=== PATIENT | male | born 2000 | race Caucasian/White ===

== ENCOUNTER 2021-02-05 13:14 | Emergency (ER) | payer OTHER ==
[2021-02-05 13:19] VITALS: BP 141/69; PULSE 80; RESP 18; TEMP 97.7
--- NOTE | 2021-02-05 14:22 | ED ---
Wound/Laceration HPI - General Source: patient Mode of arrival: ambulatory Limitations: no limitations <Dakotah Luke - Last Filed: 02/05/21 14:19> <Keerthi Wolff - Last Filed: 02/06/21 10:15> - General Chief Complaint: Wound/Laceration Stated Complaint: eyebrow laceration - History of Present Illness Initial Comments: 21-year-old male presents emergency Department with chief complaint laceration. This occurred about one hour prior to arrival. Patient reports using a breaker bar to work on his car when the bar snapped and hit him in the left supraorbital region. Reports laceration which is slightly tender to touch. Denies any loss of consciousness. No blood thinners. Tetanus is up-to-date. Denies numbness or tingling. Denies any headaches. Denies blurry vision. (Dakotah Luke) - Related Data Allergies Allergy/AdvReac Type Severity Reaction Status Date / Time amoxicillin AdvReac Vomiting Verified 02/05/21 13:18 cephalexin [From Keflex] AdvReac Vomiting Verified 02/05/21 13:18 Review of Systems ROS Other: All systems not noted in ROS Statement are negative. <Dakotah Luke - Last Filed: 02/05/21 14:19> ROS Other: All systems not noted in ROS Statement are negative. <Keerthi Wolff - Last Filed: 02/06/21 10:15> ROS Statement: Those systems with pertinent positive or pertinent negative responses have been documented in the HPI. Past Medical History Past Medical History: No Reported History History of Any Multi-Drug Resistant Organisms: None Reported Past Surgical History: Tonsillectomy Past Psychological History: No Psychological Hx Reported Smoking Status: Vaper Past Alcohol Use History: Occasional Past Drug Use History: Marijuana <Dakotah Luke - Last Filed: 02/05/21 14:19> General Exam Limitations: no limitations General appearance: alert, in no apparent distress Head exam: Present: normocephalic, normal inspection. Absent: atraumatic (Small laceration on the left supraorbital region measuring approximately 1.5 cm.), other (Negative Nails sign, raccoon eyes, hemotympanum.) Eye exam: Present: normal appearance, PERRL, EOMI Pupils: Present: normal accommodation ENT exam: Present: normal exam, normal oropharynx, mucous membranes moist Neck exam: Present: normal inspection, full ROM. Absent: tenderness Respiratory exam: Present: normal lung sounds bilaterally. Absent: respiratory distress Cardiovascular Exam: Present: regular rate, normal rhythm, normal heart sounds Extremities exam: Present: normal inspection, full ROM, normal capillary refill Back exam: Present: normal inspection, full ROM Neurological exam: Present: alert, oriented X3 Psychiatric exam: Present: normal affect, normal mood Skin exam: Present: warm, dry, intact, normal color <Dakotah Luke - Last Filed: 02/05/21 14:19> Course Vital Signs 02/05/21 13:16 Temperature 97.7 F Pulse Rate 80 Respiratory 18 Rate Blood Pressure 141/69 O2 Sat by Pulse 98 Oximetry Procedures - Laceration Laceration #1 Consent Obtained: verbal consent Indication: laceration Site: face Size (cm): 2 Description: linear, clean Depth: simple, single layer Sedation/Analgesia: none Pre-repair: irrigated extensively, deep structures intact Type of Sutures: nylon Size of Sutures: 4-0 Number of Sutures: 2 Technique: simple, interrupted Patient Tolerated Procedure: well, no complications <Dakotah Luke - Last Filed: 02/05/21 14:19> Medical Decision Making <Dakotah Luke - Last Filed: 02/05/21 14:19> <Keerthi Wolff - Last Filed: 02/06/21 10:15> - Medical Decision Making 21-year-old male presents to emergency Department with a chief complaint laceration. On physical examination, left supraorbital laceration. Small hematoma and region. He was offered imaging of the head, he declined. Tetanus up-to-date per laceration site was thoroughly irrigated and repaired with 2 sutures. Patient vised return in 5-7 days for suture removal. Case discussed with physician. (Dakotah Luke) I was available for consultation in the emergency department. The history and physical exam were done by the midlevel provider. I was consulted for this patients care. I reviewed the case with the midlevel provider and based on their presentation of the patient, I agree with the assessment, medical decision making and plan of care as documented. Chart was dictated using [employer] dictation software. Attempts were made to correct any dictation errors however some typographical errors may persist. Patient was seen during a national state of emergency due to the Covid-19 pandemic. (Keerthi Wolff) Disposition Is patient prescribed a controlled substance at d/c from ED?: No Time of Disposition: 14:22 <Dakotah Luke - Last Filed: 02/05/21 14:19> <Keerthi Wolff - Last Filed: 02/06/21 10:15> Clinical Impression: Laceration Disposition: HOME SELF-CARE Condition: Stable Instructions (If sedation given, give patient instructions): Care For Your Stitches (DC), Laceration (DC) Additional Instructions: Please return to the emergency room in 5-7 days to have sutures removed. Please watch for any signs of infection which may include increased pain, swelling, redness, fever or chills. Please return to emergency room for any signs of infection do occur. Please use clean soap and water over the area to prevent scabbing over your stitches. Please leave wound covered for the first 24-48 hours and then leave wound open to air. Please return to the emergency room for any other concerns. Referrals: None,Stated [Primary Care Provider] - 1-2 days
== END 2021-02-05 14:30 | disposition home or self-care (01) ==
LOC: EC 13:14
DX: S01.81XA Laceration without foreign body of other part of head, initial encounter (principal); F17.290 Nicotine dependence, other tobacco product, uncomplicated; Z88.0 Allergy status to penicillin; Z88.1 Allergy status to other antibiotic agents; W22.8XXA Striking against or struck by other objects, initial encounter; Y93.89 Activity, other specified
CPT/HCPCS: 12011; 99282

== ENCOUNTER 2021-02-08 17:46 | Emergency (ER) | payer OTHER ==
[2021-02-08 18:08] VITALS: BP 124/70; PULSE 90; RESP 18; TEMP 98.8
--- NOTE | 2021-02-08 19:20 | ED ---
Wound/Laceration HPI - General Chief Complaint: Wound/Laceration Stated Complaint: Leg lac/Chainsaw/at work refused [facility] Time Seen by Provider: 02/08/21 18:41 Source: patient, RN notes reviewed Mode of arrival: ambulatory Limitations: no limitations - History of Present Illness Initial Comments: Patient is a 21-year-old male presents emergency room complaining of a left cheng laceration from chainsaw work. He noted that he was in no pain and came to get stitches. He noted that he did try to superglue it but it pulled open on its own. He noted that he peeled the superglue off then came to the emergency room. He denied any pain. She denied chest pain shortness breath headache nausea vomiting diarrhea constipation fever fatigue chills. - Related Data Allergies Allergy/AdvReac Type Severity Reaction Status Date / Time amoxicillin AdvReac Vomiting Verified 02/08/21 18:08 cephalexin [From Keflex] AdvReac Vomiting Verified 02/08/21 18:08 Review of Systems ROS Statement: Those systems with pertinent positive or pertinent negative responses have been documented in the HPI. ROS Other: All systems not noted in ROS Statement are negative. Past Medical History Past Medical History: No Reported History History of Any Multi-Drug Resistant Organisms: None Reported Past Surgical History: Tonsillectomy Past Psychological History: No Psychological Hx Reported Smoking Status: Vaper Past Alcohol Use History: Occasional Past Drug Use History: Marijuana General Exam Limitations: no limitations General appearance: alert, in no apparent distress Head exam: Present: atraumatic, normocephalic, normal inspection Eye exam: Present: normal appearance, PERRL, EOMI. Absent: scleral icterus, conjunctival injection, periorbital swelling ENT exam: Present: normal exam, mucous membranes moist Neck exam: Present: normal inspection. Absent: tenderness, meningismus, lymphadenopathy Respiratory exam: Present: normal lung sounds bilaterally. Absent: respiratory distress, wheezes, rales, rhonchi, stridor Cardiovascular Exam: Present: regular rate, normal rhythm, normal heart sounds. Absent: systolic murmur, diastolic murmur, rubs, gallop, clicks GI/Abdominal exam: Present: soft, normal bowel sounds. Absent: distended, tenderness, guarding, rebound, rigid Extremities exam: Present: normal inspection, full ROM, normal capillary refill. Absent: tenderness, pedal edema, joint swelling, calf tenderness Neurological exam: Present: alert, oriented X3, CN II-XII intact Psychiatric exam: Present: normal affect, normal mood Skin exam: Present: warm, dry, intact, normal color, other (6 cm laceration of left cheng that is linear with clean margins.). Absent: rash Course Vital Signs 02/08/21 18:05 Temperature 98.8 F Pulse Rate 90 Respiratory 18 Rate Blood Pressure 124/70 O2 Sat by Pulse 97 Oximetry Procedures - Laceration Laceration #1 Consent Obtained: verbal consent Indication: laceration Site: lower extremity (Left Cheng) Size (cm): 6 Description: linear Depth: simple, single layer Pre-repair: irrigated extensively Type of Sutures: nylon Size of Sutures: 4-0 Number of Sutures: 5 Technique: simple, interrupted Patient Tolerated Procedure: well, no complications Medical Decision Making - Medical Decision Making 21-year-old male with left cheng laceration. Patient to clinic need for any anesthetic, opted to get sutures without vomiting. Handled procedure well. Case discussed with Dr. Tavarez, patient could discharge home. Patient declined need for any antibiotics. And stated that he would not take them. Disposition Clinical Impression: Laceration Disposition: HOME SELF-CARE Condition: Stable Instructions (If sedation given, give patient instructions): Laceration (ED), Care For Your Stitches (ED) Additional Instructions: Please return to the Emergency Department if symptoms worsen or any other concerns. Come back in 5-7 days to get sutures removed. Follow up primary care in 3-5 days. If any erythema or drainage return or go to urgent care for antibiotic therapy. Is patient prescribed a controlled substance at d/c from ED?: No Referrals: None,Stated [Primary Care Provider] - 1-2 days Time of Disposition: 19:19
== END 2021-02-08 20:00 | disposition home or self-care (01) ==
LOC: EC 17:46
DX: S81.812A Laceration without foreign body, left lower leg, initial encounter (principal); F12.90 Cannabis use, unspecified, uncomplicated; Z88.0 Allergy status to penicillin; X58.XXXA Exposure to other specified factors, initial encounter
CPT/HCPCS: 12002; 99282

== ENCOUNTER 2021-03-10 14:59 | Emergency (ER) | payer OTHER ==
[2021-03-10 15:07] VITALS: BP 144/76; PULSE 70; RESP 18; TEMP 98
[2021-03-10] MEDS ORDERED: KETOROLAC 15 MG/ML 1 ML VIAL IM STA (15:27)
--- NOTE | 2021-03-10 15:29 | ED ---
General Adult HPI - General Chief complaint: Extremity Injury, Lower Stated complaint: [facility] - R Knee injury Time Seen by Provider: 03/10/21 15:00 Source: patient, RN notes reviewed, old records reviewed Mode of arrival: wheelchair Limitations: no limitations - History of Present Illness Initial comments: This is a 21-year-old male who presents emergency Department complaining of right knee pain. Patient states pain is mostly suprapatellar region. Patient states he was getting up into a truck and he felt a pop in his knee and ever since then he's been quite painful. Patient denies any direct blunt trauma. Patient denies any twisting motion. Patient states he was getting a truck when he felt a pop and started having pain. Patient states she was able to ambulate but it was painful. Patient denies any hip pain patient denies any ankle or foot pain. Patient denies previous injury to that knee. - Related Data Previous Rx's Medication Instructions Recorded Ibuprofen [Motrin] 600 mg PO Q6HR PRN #20 tab 03/10/21 Allergies Allergy/AdvReac Type Severity Reaction Status Date / Time amoxicillin AdvReac Vomiting Verified 03/10/21 15:06 cephalexin [From Keflex] AdvReac Vomiting Verified 03/10/21 15:06 Review of Systems ROS Statement: Those systems with pertinent positive or pertinent negative responses have been documented in the HPI. ROS Other: All systems not noted in ROS Statement are negative. Past Medical History Past Medical History: No Reported History History of Any Multi-Drug Resistant Organisms: None Reported Past Surgical History: Tonsillectomy Past Psychological History: No Psychological Hx Reported Smoking Status: Vaper Past Alcohol Use History: Occasional Past Drug Use History: Marijuana General Exam - General Exam Comments Initial Comments: GENERAL Patient is well-developed and well-nourished. Patient is in mild distress. EYES Patient's pupils are equal and round. Extraocular motion is intact SKIN Unremarkable NEURO The patient is alert and oriented 3 PYSCH Patient has normal interpersonal interactions. MUSCULOSKELETAL Patient has no ligament laxity in the right knee. Patient may have very slight effusion suprapatellar region is difficult to assess since the patient will not leave the leg down straight. Limitations: no limitations Course Vital Signs 03/10/21 15:03 Temperature 98.0 F Pulse Rate 70 Respiratory 18 Rate Blood Pressure 144/76 O2 Sat by Pulse 99 Oximetry Medical Decision Making - Medical Decision Making X-ray shows no acute abnormality. Patient was still in quite a bit of pain so I put a knee immobilizer and that helped with the pain so was given a follow-up with orthopedic - Lab Data Lab Results 03/10/21 Range/Units 15:43 Urine Opiates Screen Not Detected (NotDetected) Ur Oxycodone Screen Not Detected (NotDetected) Urine Methadone Screen Not Detected (NotDetected) Ur Propoxyphene Screen Not Detected (NotDetected) Ur Barbiturates Screen Not Detected (NotDetected) U Tricyclic Antidepress Not Detected (NotDetected) Ur Phencyclidine Scrn Not Detected (NotDetected) Ur Amphetamines Screen Not Detected (NotDetected) U Methamphetamines Scrn Not Detected (NotDetected) U Benzodiazepines Scrn Not Detected (NotDetected) Urine Cocaine Screen Not Detected (NotDetected) U Marijuana (THC) Screen Detected H (NotDetected) Disposition Clinical Impression: Right knee pain Disposition: HOME SELF-CARE Instructions (If sedation given, give patient instructions): Knee Pain (ED) Prescriptions: Ibuprofen [Motrin] 600 mg PO Q6HR PRN #20 tab PRN Reason: For pain Is patient prescribed a controlled substance at d/c from ED?: No Referrals: None,Stated [Primary Care Provider] - 1-2 days Time of Disposition: 16:54
--- NOTE | 2021-03-10 15:30 | XR ---
EXAMINATION TYPE: XR knee complete RT DATE OF EXAM: 03/10/2021 CLINICAL HISTORY: pain TECHNIQUE: Three views of the right knee are obtained. COMPARISON: None. FINDINGS: There is no acute fracture/dislocation. The tri-compartment joint spaces appear within no rmal limits. The overlying soft tissue appears unremarkable. IMPRESSION: There is no acute fracture or dislocation.ICD 10 NO FRACTURE, INITIAL EVALUATION
[2021-03-10 16:39] LABS: Amphetamine Screen,Urine Not Detected (NotDetected); Barbiturate Screen,Urine Not Detected (NotDetected); Benzodiazepines Screen,Urine Not Detected (NotDetected); Cocaine Screen,Urine Not Detected (NotDetected); Methadone Screen, Urine Not Detected (NotDetected); Opiate Screen,Urine Not Detected (NotDetected); Oxycodone Screen, Urine Not Detected (NotDetected); Phencyclidine Screen,Urine Not Detected (NotDetected); Tricyclic Antidepressant,Urine Not Detected (NotDetected); Urn Cannabinoid Scrn Detected (NotDetected)
== END 2021-03-10 17:27 | disposition home or self-care (01) ==
LOC: EC 14:59
DX: M25.561 Pain in right knee (principal); F17.290 Nicotine dependence, other tobacco product, uncomplicated; F12.90 Cannabis use, unspecified, uncomplicated
CPT/HCPCS: 80306; 73562; 99283; 96372; L1830; J1885